=== PATIENT | male | born 1985 | race Caucasian/White ===

== ENCOUNTER 2016-12-01 06:37 | Inpatient (IN) | payer MEDICAID ==
[~2016-12-01] VITALS: Ht 180.3 cm; Wt 75.6 kg
[2016-12-01 07:26] LABS: BASOPHILS % (AUTO) 0.2 % (0.0-2.0); EOSINOPHILS % (AUTO) 0.1 % (1.0-6.0); HEMATOCRIT 41.9 % (41-53); HEMOGLOBIN 14.2 g/dL (13.5-17.5); LYMPHOCYTES # (AUTO) 0.8 K/uL (1.0-4.8); LYMPHOCYTES % (AUTO) 9.7 % (22.0-44.0); MEAN CORPUSCULAR HEMOGLOBIN 32.6 pg (26.0-34.0); MEAN CORPUSCULAR HGB CONC 33.8 G/dL (31.0-37.0); MEAN CORPUSCULAR VOLUME 96 fL (80-100); MONOCYTES # (AUTO) 0.6 K/uL (0.1-1.0); MONOCYTES % (AUTO) 7.3 % (2.0-9.0); NEUTROPHILS # (AUTO) 6.6 K/uL (1.8-7.7); NEUTROPHILS % (AUTO) 82.7 % (40.0-70.0); PLATELET COUNT (AUTO) 231 K/uL (150-450); RED BLOOD CELL COUNT(AUTO) 4.35 MIL/uL (4.50-5.90); RED CELL DISTRIBUTION WIDTH 14.2 % (11.5-14.5)
[2016-12-01 07:34] LABS: ANION GAP 9 mmol/L (8-16); CARBON DIOXIDE 30 mmol/L (22-29); CHLORIDE 95 mmol/L (98-107); CREATININE 0.65 mg/dL (0.60-1.30); GLOMERULAR FILTR. RATE CALC > 60 mL/min (>60); POTASSIUM 3.2 mmol/L (3.5-5.1); SODIUM SERUM 134 mmol/L (136-145); UREA NITROGEN, BLOOD 6 mg/dL (7-18)
[2016-12-01 07:40] LABS: ALANINE AMINOTRANSFERASE 50 U/L (12-78); ALBUMIN 4.4 g/dL (3.4-5.0); ASPARTATE AMINOTRANSFERASE 74 U/L (15-37); BILIRUBIN,TOTAL 0.6 mg/dL (0.1-1.0); TOTAL PROTEIN, SERUM 7.9 g/dL (6.4-8.2)
[2016-12-01] MEDS ORDERED: LORazepam 2 MG/ML VIAL IM ONE (09:30)
[2016-12-01] MEDS ORDERED: HALOPERIDOL LACTATE 5 MG/ML VIAL IM ONE (09:30)
[2016-12-01] MEDS ORDERED: LORazepam 2 MG TABLET PO PRN (10:15)
[2016-12-01] MEDS ORDERED: HALOPERIDOL 5 MG TABLET PO PRN (10:15)
[2016-12-01] MEDS ORDERED: ZOLPIDEM TARTRATE 10 MG TABLET PO PRN (10:15)
[2016-12-01 13:23] VITALS: BP 123/62
[2016-12-01] MEDS ORDERED: POTASSIUM CHLORIDE 20 MEQ ER TABLET PO ONE (14:15)
[2016-12-01 16:00] VITALS: BP 126/71
[2016-12-01] MEDS: OLANZapine 5 MG TABLET PO SCH (21:36)
[2016-12-02] MEDS: FLUoxetine HCL 20 MG CAPSULE PO SCH (09:15)
[2016-12-02 10:30] VITALS: BP 125/65
[2016-12-02 17:00] VITALS: BP 119/72
[2016-12-02] MEDS: OLANZapine 5 MG TABLET PO SCH (21:31)
[2016-12-03 08:43] VITALS: BP 115/71
[2016-12-03] MEDS: FLUoxetine HCL 20 MG CAPSULE PO SCH (10:11)
[2016-12-03 17:30] VITALS: BP 131/73
[2016-12-03] MEDS: OLANZapine 5 MG TABLET PO SCH (22:14)
[2016-12-04 08:36] VITALS: BP 118/64
[2016-12-04] MEDS: FLUoxetine HCL 20 MG CAPSULE PO SCH (10:19)
[2016-12-04 17:49] VITALS: BP 136/76
[2016-12-04] MEDS: OLANZapine 5 MG TABLET PO SCH (21:05)
[2016-12-04] MEDS ORDERED: FLUO-191 PO (22:45)
[2016-12-04] MEDS ORDERED: OLAN5TAB2 PO (22:46)
[2016-12-05] MEDS ORDERED: NITROGLYCERIN 0.4 MG SUBLINGUAL TABLET #25 SL PRN (05:15)
[2016-12-05] MEDS ORDERED: ASPIRIN 81 MG CHEWABLE TABLET PO SCH (09:00)
[2016-12-05] MEDS ORDERED: CLOPIDOGREL BISULFATE 75 MG TABLET PO SCH (09:00)
[2016-12-05] MEDS ORDERED: ATORVASTATIN CALCIUM 20 MG TABLET PO SCH (09:00)
[2016-12-05] MEDS ORDERED: METOPROLOL TARTRATE 25 MG TABLET PO SCH (09:00)
[2016-12-05 09:17] VITALS: BP 129/75
[2016-12-05] MEDS ORDERED: BACITRACIN 28.4 GM OINTMENT TP ONE (10:46)
[2016-12-05] MEDS: FLUoxetine HCL 20 MG CAPSULE PO SCH (10:51)
[2016-12-05] MEDS ORDERED: BACI30OI6 TP (15:10)
== END 2016-12-05 15:00 | disposition home or self-care (01) | DRG 750 ==
LOC: EMS 06:40 → 3EI 10:52
PROVIDERS: ADMIT Psychiatry & Neurology Psychiatry; ATTEND Psychiatry & Neurology Psychiatry
DX: F25.0 Schizoaffective disorder, bipolar type (principal); R45.851 Suicidal ideations; F15.20 Other stimulant dependence, uncomplicated; F22 Delusional disorders; E87.6 Hypokalemia; F12.10 Cannabis abuse, uncomplicated; F41.9 Anxiety disorder, unspecified; F90.9 Attention-deficit hyperactivity disorder, unspecified type; F17.210 Nicotine dependence, cigarettes, uncomplicated; Z59.0 Homelessness; Z81.8 Family history of other mental and behavioral disorders
CPT/HCPCS: 84132; 96372; 99285; G0480; J1630; J2060